=== PATIENT | female | born 1990 | race Two or more races ===

== ENCOUNTER 2022-01-01 23:25 | Emergency (ER) | payer MEDICAID, OTHER ==
[~2022-01-01] VITALS: Ht 154.9 cm; Wt 72.0 kg
[2022-01-02] MEDS ORDERED: MORPHINE SULFATE 4 MG/ML SYR/VIAL IV ONE (01:00)
[2022-01-02 03:13] VITALS: BP 123/81
[2022-01-02] MEDS ORDERED: HYDROcodone-ACET 10/325MG TAB PO ONE (03:15)
== END 2022-01-02 03:35 | disposition home or self-care (01) ==
LOC: ER 23:25 → EDBD 23:25 → ER 01-02 03:29
DX: S20.319A Abrasion of unspecified front wall of thorax, initial encounter (principal); M79.10 Myalgia, unspecified site; M25.562 Pain in left knee; M25.561 Pain in right knee; Z90.49 Acquired absence of other specified parts of digestive tract; V89.2XXA Person injured in unspecified motor-vehicle accident, traffic, initial encounter; Y93.89 Activity, other specified; Y92.89 Other specified places as the place of occurrence of the external cause; Y99.8 Other external cause status
CPT/HCPCS: 70450; 71120; 72040; 72070; 72100; 74176; 96372; 99284; J2270